=== PATIENT | female | born 1935 | race Native Hawaiian/Other Pacific Islander ===

== ENCOUNTER 2016-06-25 11:07 | Outpatient (CLI) | payer OTHER ==
[~2016-06-25 11:07] MED LIST: AMBIEN5 MG PO; AMLO2.5T PO; CLON0.5T36 PO; FUROSEMIDE20 MG PO; IMDUR30 MG PO; METOPROLOL25 M1 PO; OMEPRAZOLE20 M2 PO; PACERONE200 MG PO; PRINIVIL5 MG PO; RANO500T PO; TIROSINT50 MCG PO; WARFARIN2 MG PO; WARFARIN4 MG PO
== END 2016-06-25 19:51 | disposition home or self-care (01) ==
LOC: LABW 11:07
DX: Z79.01 Long term (current) use of anticoagulants (principal); I34.0 Nonrheumatic mitral (valve) insufficiency; I35.1 Nonrheumatic aortic (valve) insufficiency; Z51.81 Encounter for therapeutic drug level monitoring
CPT/HCPCS: 36415; 85610

== ENCOUNTER 2016-07-02 14:00 | Outpatient (CLI) | payer OTHER | END 2016-07-02 19:18 | disposition home or self-care (01) | LOC: LABW 14:00 | DX: D50.8 Other iron deficiency anemias (principal); Z79.01 Long term (current) use of anticoagulants; I34.0 Nonrheumatic mitral (valve) insufficiency; I35.1 Nonrheumatic aortic (valve) insufficiency; Z51.81 Encounter for therapeutic drug level monitoring | CPT/HCPCS: 36415; 85018; 85610 ==

== ENCOUNTER 2016-07-10 13:21 | Outpatient (CLI) | payer OTHER | END 2016-07-10 19:33 | disposition home or self-care (01) | LOC: LABW 13:21 | DX: Z79.01 Long term (current) use of anticoagulants (principal); I35.1 Nonrheumatic aortic (valve) insufficiency; I34.0 Nonrheumatic mitral (valve) insufficiency; Z51.81 Encounter for therapeutic drug level monitoring | CPT/HCPCS: 36415; 85610 ==

== ENCOUNTER 2016-07-17 10:58 | Outpatient (CLI) | payer OTHER | END 2016-07-17 23:43 | disposition home or self-care (01) | LOC: LABW 10:58 | DX: Z79.01 Long term (current) use of anticoagulants (principal); Z51.81 Encounter for therapeutic drug level monitoring; I35.1 Nonrheumatic aortic (valve) insufficiency; I34.0 Nonrheumatic mitral (valve) insufficiency | CPT/HCPCS: 85610 ==

== ENCOUNTER 2016-07-19 12:20 | Outpatient (CLI) | payer OTHER | END 2016-07-19 19:11 | disposition home or self-care (01) | LOC: LABW 12:20 | DX: H44.113 Panuveitis, bilateral (principal) | CPT/HCPCS: 36415; 86777; 86778 ==

== ENCOUNTER 2016-07-26 11:34 | Outpatient (CLI) | payer OTHER | END 2016-07-26 12:34 | disposition home or self-care (01) | LOC: LABW 11:34 | DX: Z79.01 Long term (current) use of anticoagulants (principal); I35.1 Nonrheumatic aortic (valve) insufficiency; I34.0 Nonrheumatic mitral (valve) insufficiency; Z51.81 Encounter for therapeutic drug level monitoring | CPT/HCPCS: 36415; 85610 ==

== ENCOUNTER 2016-08-02 11:07 | Outpatient (CLI) | payer OTHER | END 2016-08-02 20:02 | disposition home or self-care (01) | LOC: LABW 11:07 | DX: Z79.01 Long term (current) use of anticoagulants (principal); I35.1 Nonrheumatic aortic (valve) insufficiency; I34.0 Nonrheumatic mitral (valve) insufficiency; Z51.81 Encounter for therapeutic drug level monitoring | CPT/HCPCS: 36415; 85610 ==

== ENCOUNTER 2016-08-08 11:27 | Outpatient (CLI) | payer OTHER | END 2016-08-08 19:16 | disposition home or self-care (01) | LOC: LABW 11:27 | DX: H44.113 Panuveitis, bilateral (principal); Z79.01 Long term (current) use of anticoagulants; I35.1 Nonrheumatic aortic (valve) insufficiency; I34.0 Nonrheumatic mitral (valve) insufficiency; Z51.81 Encounter for therapeutic drug level monitoring | CPT/HCPCS: 36415; 85610 ==

== ENCOUNTER 2016-08-14 15:19 | Outpatient (CLI) | payer OTHER | END 2016-08-14 19:21 | disposition home or self-care (01) | LOC: LABW 15:19 | DX: Z79.01 Long term (current) use of anticoagulants (principal); I35.1 Nonrheumatic aortic (valve) insufficiency; I34.0 Nonrheumatic mitral (valve) insufficiency; Z51.81 Encounter for therapeutic drug level monitoring | CPT/HCPCS: 36415; 85610 ==

== ENCOUNTER 2016-08-21 13:49 | Outpatient (CLI) | payer OTHER | END 2016-08-21 22:52 | disposition home or self-care (01) | LOC: LABW 13:49 | DX: Z79.01 Long term (current) use of anticoagulants (principal); I34.0 Nonrheumatic mitral (valve) insufficiency; I35.1 Nonrheumatic aortic (valve) insufficiency; Z51.81 Encounter for therapeutic drug level monitoring | CPT/HCPCS: 36415; 85610 ==

== ENCOUNTER 2016-09-02 09:55 | Outpatient (CLI) | payer OTHER | END 2016-09-02 19:45 | disposition home or self-care (01) | LOC: LABW 09:55 | DX: Z79.01 Long term (current) use of anticoagulants (principal); I35.1 Nonrheumatic aortic (valve) insufficiency; I34.0 Nonrheumatic mitral (valve) insufficiency; Z51.81 Encounter for therapeutic drug level monitoring | CPT/HCPCS: 36415; 85610 ==

== ENCOUNTER 2016-09-12 12:00 | Outpatient (CLI) | payer OTHER | END 2016-09-12 21:05 | disposition home or self-care (01) | LOC: LABW 12:00 | DX: I34.0 Nonrheumatic mitral (valve) insufficiency (principal); Z79.01 Long term (current) use of anticoagulants | CPT/HCPCS: 36415; 85610 ==

== ENCOUNTER 2016-09-18 14:56 | Outpatient (CLI) | payer OTHER | END 2016-09-18 19:21 | disposition home or self-care (01) | LOC: LABW 14:56 | DX: Z79.01 Long term (current) use of anticoagulants (principal); I35.1 Nonrheumatic aortic (valve) insufficiency; I34.0 Nonrheumatic mitral (valve) insufficiency; Z51.81 Encounter for therapeutic drug level monitoring | CPT/HCPCS: 36415; 85610 ==

== ENCOUNTER 2016-09-25 10:07 | Outpatient (CLI) | payer OTHER | END 2016-09-25 11:07 | disposition home or self-care (01) | LOC: LABW 10:07 | DX: Z79.01 Long term (current) use of anticoagulants (principal); Z51.81 Encounter for therapeutic drug level monitoring; I34.0 Nonrheumatic mitral (valve) insufficiency; I35.1 Nonrheumatic aortic (valve) insufficiency | CPT/HCPCS: 36415; 85610 ==

== ENCOUNTER 2016-10-02 09:30 | Outpatient (CLI) | payer OTHER | END 2016-10-02 19:05 | disposition home or self-care (01) | LOC: LABW 09:30 | DX: Z79.01 Long term (current) use of anticoagulants (principal); I35.1 Nonrheumatic aortic (valve) insufficiency; I34.0 Nonrheumatic mitral (valve) insufficiency; Z51.81 Encounter for therapeutic drug level monitoring | CPT/HCPCS: 36415; 85610 ==

== ENCOUNTER 2016-10-10 11:20 | Outpatient (CLI) | payer OTHER | END 2016-10-10 19:45 | disposition home or self-care (01) | LOC: LABW 11:20 | DX: Z79.01 Long term (current) use of anticoagulants (principal); I34.0 Nonrheumatic mitral (valve) insufficiency; I35.1 Nonrheumatic aortic (valve) insufficiency; Z51.81 Encounter for therapeutic drug level monitoring | CPT/HCPCS: 36415; 85610 ==

== ENCOUNTER 2016-10-16 10:01 | Outpatient (CLI) | payer OTHER | END 2016-10-16 19:04 | disposition home or self-care (01) | LOC: LABW 10:01 | DX: Z79.01 Long term (current) use of anticoagulants (principal); I35.1 Nonrheumatic aortic (valve) insufficiency; I34.0 Nonrheumatic mitral (valve) insufficiency; Z51.81 Encounter for therapeutic drug level monitoring | CPT/HCPCS: 36415; 85610 ==

== ENCOUNTER 2016-10-24 11:14 | Outpatient (CLI) | payer OTHER | END 2016-10-24 12:30 | disposition home or self-care (01) | LOC: LABW 11:14 | DX: I34.0 Nonrheumatic mitral (valve) insufficiency (principal); Z79.01 Long term (current) use of anticoagulants | CPT/HCPCS: 36415; 85610 ==

== ENCOUNTER 2016-10-30 15:54 | Outpatient (CLI) | payer OTHER | END 2016-10-30 16:30 | disposition home or self-care (01) | LOC: LABW 15:54 | DX: Z79.01 Long term (current) use of anticoagulants (principal); I35.1 Nonrheumatic aortic (valve) insufficiency; I34.0 Nonrheumatic mitral (valve) insufficiency; Z51.81 Encounter for therapeutic drug level monitoring | CPT/HCPCS: 36415; 85610 ==

== ENCOUNTER 2016-11-14 11:55 | Outpatient (CLI) | payer OTHER | END 2016-11-14 19:48 | disposition home or self-care (01) | LOC: LABW 11:55 | DX: Z79.01 Long term (current) use of anticoagulants (principal); I35.1 Nonrheumatic aortic (valve) insufficiency; I34.0 Nonrheumatic mitral (valve) insufficiency; Z51.81 Encounter for therapeutic drug level monitoring | CPT/HCPCS: 36415; 85610 ==

== ENCOUNTER 2016-11-19 14:27 | Outpatient (CLI) | payer OTHER | END 2016-11-19 19:32 | disposition home or self-care (01) | LOC: LABW 14:27 | DX: Z79.01 Long term (current) use of anticoagulants (principal); I35.1 Nonrheumatic aortic (valve) insufficiency; I34.0 Nonrheumatic mitral (valve) insufficiency; Z51.81 Encounter for therapeutic drug level monitoring | CPT/HCPCS: 36415; 85610 ==

== ENCOUNTER 2016-11-28 10:21 | Outpatient (CLI) | payer OTHER | END 2016-11-28 11:30 | disposition home or self-care (01) | LOC: LABW 10:21 | DX: Z79.899 Other long term (current) drug therapy (principal); Z51.81 Encounter for therapeutic drug level monitoring; Z79.01 Long term (current) use of anticoagulants; I35.1 Nonrheumatic aortic (valve) insufficiency; I34.0 Nonrheumatic mitral (valve) insufficiency | CPT/HCPCS: 36415; 80076; 84436; 84443; 84479; 85610 ==

== ENCOUNTER 2016-12-05 12:18 | Outpatient (CLI) | payer OTHER | END 2016-12-05 19:41 | disposition home or self-care (01) | LOC: LABW 12:18 | DX: Z79.01 Long term (current) use of anticoagulants (principal); I35.1 Nonrheumatic aortic (valve) insufficiency; I34.0 Nonrheumatic mitral (valve) insufficiency; Z51.81 Encounter for therapeutic drug level monitoring | CPT/HCPCS: 36415; 85610 ==

== ENCOUNTER 2016-12-12 13:17 | Outpatient (CLI) | payer OTHER | END 2016-12-12 20:03 | disposition home or self-care (01) | LOC: LABW 13:17 | DX: Z79.01 Long term (current) use of anticoagulants (principal); I35.1 Nonrheumatic aortic (valve) insufficiency; I34.0 Nonrheumatic mitral (valve) insufficiency; Z51.81 Encounter for therapeutic drug level monitoring | CPT/HCPCS: 36415; 85610 ==

== ENCOUNTER 2016-12-19 12:59 | Outpatient (CLI) | payer OTHER | END 2016-12-19 14:00 | disposition home or self-care (01) | LOC: LABW 12:59 | DX: Z79.01 Long term (current) use of anticoagulants (principal); I35.1 Nonrheumatic aortic (valve) insufficiency; I34.0 Nonrheumatic mitral (valve) insufficiency; Z51.81 Encounter for therapeutic drug level monitoring | CPT/HCPCS: 36415; 85610 ==

== ENCOUNTER 2016-12-25 12:18 | Outpatient (CLI) | payer OTHER | END 2016-12-25 19:05 | disposition home or self-care (01) | LOC: LABW 12:18 | DX: Z79.01 Long term (current) use of anticoagulants (principal); I35.1 Nonrheumatic aortic (valve) insufficiency; I34.0 Nonrheumatic mitral (valve) insufficiency; Z51.81 Encounter for therapeutic drug level monitoring | CPT/HCPCS: 36415; 85610 ==

== ENCOUNTER 2017-01-02 12:55 | Outpatient (CLI) | payer OTHER | END 2017-01-02 14:00 | disposition home or self-care (01) | LOC: LABW 12:55 | DX: Z79.01 Long term (current) use of anticoagulants (principal); I35.1 Nonrheumatic aortic (valve) insufficiency; I34.0 Nonrheumatic mitral (valve) insufficiency; Z51.81 Encounter for therapeutic drug level monitoring | CPT/HCPCS: 36415; 85610 ==

== ENCOUNTER 2017-01-09 12:46 | Outpatient (CLI) | payer OTHER | END 2017-01-09 19:17 | disposition home or self-care (01) | LOC: LABW 12:46 | DX: Z79.01 Long term (current) use of anticoagulants (principal); I34.0 Nonrheumatic mitral (valve) insufficiency; Z51.81 Encounter for therapeutic drug level monitoring | CPT/HCPCS: 36415; 85610 ==

== ENCOUNTER 2017-01-23 12:59 | Outpatient (CLI) | payer OTHER | END 2017-01-23 19:59 | disposition home or self-care (01) | LOC: LABW 12:59 | DX: Z79.01 Long term (current) use of anticoagulants (principal); I35.1 Nonrheumatic aortic (valve) insufficiency; I34.0 Nonrheumatic mitral (valve) insufficiency; Z51.81 Encounter for therapeutic drug level monitoring | CPT/HCPCS: 36415; 85610 ==

== ENCOUNTER 2017-02-11 11:47 | Outpatient (CLI) | payer OTHER | END 2017-02-11 19:03 | disposition home or self-care (01) | LOC: LABW 11:47 | DX: Z79.01 Long term (current) use of anticoagulants (principal); Z51.81 Encounter for therapeutic drug level monitoring; I35.1 Nonrheumatic aortic (valve) insufficiency; I34.0 Nonrheumatic mitral (valve) insufficiency | CPT/HCPCS: 36415; 85610 ==

== ENCOUNTER 2017-03-05 10:04 | Outpatient (CLI) | payer OTHER | END 2017-03-05 19:00 | disposition home or self-care (01) | LOC: LABW 10:04 | DX: Z79.01 Long term (current) use of anticoagulants (principal); Z51.81 Encounter for therapeutic drug level monitoring; I35.1 Nonrheumatic aortic (valve) insufficiency; I34.0 Nonrheumatic mitral (valve) insufficiency | CPT/HCPCS: 36415; 85610 ==

== ENCOUNTER 2017-03-12 11:44 | Outpatient (CLI) | payer OTHER | END 2017-03-12 12:45 | disposition home or self-care (01) | LOC: LABW 11:44 | DX: Z79.01 Long term (current) use of anticoagulants (principal); I35.1 Nonrheumatic aortic (valve) insufficiency; I34.0 Nonrheumatic mitral (valve) insufficiency | CPT/HCPCS: 36415; 85610 ==

== ENCOUNTER 2017-03-20 13:34 | Outpatient (CLI) | payer OTHER | END 2017-03-20 14:35 | disposition home or self-care (01) | LOC: LABW 13:34 | DX: Z79.01 Long term (current) use of anticoagulants (principal); I35.1 Nonrheumatic aortic (valve) insufficiency; I34.0 Nonrheumatic mitral (valve) insufficiency; Z51.81 Encounter for therapeutic drug level monitoring | CPT/HCPCS: 36415; 85610 ==

== ENCOUNTER 2017-03-27 09:19 | Outpatient (CLI) | payer OTHER | END 2017-03-27 19:22 | disposition home or self-care (01) | LOC: LABW 09:19 | DX: Z79.01 Long term (current) use of anticoagulants (principal); I35.1 Nonrheumatic aortic (valve) insufficiency; I34.0 Nonrheumatic mitral (valve) insufficiency; Z51.81 Encounter for therapeutic drug level monitoring | CPT/HCPCS: 36415; 85610 ==

== ENCOUNTER 2017-04-02 12:12 | Outpatient (CLI) | payer OTHER | END 2017-04-02 21:18 | disposition home or self-care (01) | LOC: LABW 12:12 | DX: Z79.01 Long term (current) use of anticoagulants (principal); I35.1 Nonrheumatic aortic (valve) insufficiency; I34.0 Nonrheumatic mitral (valve) insufficiency | CPT/HCPCS: 36415; 85610 ==

== ENCOUNTER 2017-04-07 12:48 | Outpatient (CLI) | payer OTHER | END 2017-04-07 13:50 | disposition home or self-care (01) | LOC: LABW 12:48 | DX: Z79.01 Long term (current) use of anticoagulants (principal); I35.1 Nonrheumatic aortic (valve) insufficiency; I34.0 Nonrheumatic mitral (valve) insufficiency; Z51.81 Encounter for therapeutic drug level monitoring | CPT/HCPCS: 36415; 85610 ==

== ENCOUNTER 2017-04-15 09:21 | Outpatient (CLI) | payer OTHER | END 2017-04-15 18:56 | disposition home or self-care (01) | LOC: LABW 09:21 | PROVIDERS: Nurse Practitioner Adult Health | DX: I25.10 Atherosclerotic heart disease of native coronary artery without angina pectoris (principal); E78.2 Mixed hyperlipidemia; Z79.899 Other long term (current) drug therapy; Z51.81 Encounter for therapeutic drug level monitoring; I48.0 Paroxysmal atrial fibrillation; Z79.01 Long term (current) use of anticoagulants | CPT/HCPCS: 36415; 80061; 80076; 84436; 84443; 84479; 85610 ==

== ENCOUNTER 2017-04-22 13:47 | Outpatient (CLI) | payer OTHER | END 2017-04-22 19:04 | disposition home or self-care (01) | LOC: LABW 13:47 | DX: Z79.01 Long term (current) use of anticoagulants (principal); Z51.81 Encounter for therapeutic drug level monitoring; I35.1 Nonrheumatic aortic (valve) insufficiency; I34.0 Nonrheumatic mitral (valve) insufficiency | CPT/HCPCS: 36415; 85610 ==

== ENCOUNTER 2017-04-29 15:45 | Outpatient (CLI) | payer OTHER | END 2017-04-29 16:45 | disposition home or self-care (01) | LOC: LABW 15:45 | DX: Z79.01 Long term (current) use of anticoagulants (principal); Z51.81 Encounter for therapeutic drug level monitoring; I35.1 Nonrheumatic aortic (valve) insufficiency; I34.0 Nonrheumatic mitral (valve) insufficiency | CPT/HCPCS: 36415; 85610 ==

== ENCOUNTER 2017-05-07 13:01 | Outpatient (CLI) | payer OTHER | END 2017-05-07 14:05 | disposition home or self-care (01) | LOC: LABW 13:01 | DX: Z79.01 Long term (current) use of anticoagulants (principal); Z51.81 Encounter for therapeutic drug level monitoring; I35.1 Nonrheumatic aortic (valve) insufficiency; I34.0 Nonrheumatic mitral (valve) insufficiency | CPT/HCPCS: 36415; 85610 ==

== ENCOUNTER 2017-05-13 10:23 | Outpatient (CLI) | payer OTHER | END 2017-05-13 19:03 | disposition home or self-care (01) | LOC: LABW 10:23 | DX: I34.0 Nonrheumatic mitral (valve) insufficiency (principal) | CPT/HCPCS: 36415; 85610 ==

== ENCOUNTER 2017-05-27 14:10 | Outpatient (CLI) | payer OTHER | END 2017-05-27 15:10 | disposition home or self-care (01) | LOC: LABW 14:10 | DX: Z79.899 Other long term (current) drug therapy (principal); I48.0 Paroxysmal atrial fibrillation; Z51.81 Encounter for therapeutic drug level monitoring | CPT/HCPCS: 36415; 80076; 84436; 84443; 84479; 85610 ==

== ENCOUNTER 2017-05-29 13:31 | Outpatient (CLI) | payer OTHER | END 2017-05-29 19:11 | disposition home or self-care (01) | LOC: LABW 13:31 | DX: I48.0 Paroxysmal atrial fibrillation (principal); Z95.2 Presence of prosthetic heart valve; Z79.01 Long term (current) use of anticoagulants | CPT/HCPCS: 36415; 85610 ==

== ENCOUNTER 2017-07-08 18:21 | Outpatient (CLI) | payer OTHER | END 2017-07-08 19:25 | disposition home or self-care (01) | LOC: LAB 18:21 | DX: D68.8 Other specified coagulation defects (principal) | CPT/HCPCS: 85610 ==